=== PATIENT | male | born 1985 | race Two or more races ===

== ENCOUNTER 2016-09-29 13:05 | Emergency (ER) | payer SELFPAY ==
[2016-09-29 13:09] VITALS: BP 166/107; PULSE 109; RESP 18; TEMP 98.4; O2SAT 96
--- NOTE | 2016-09-29 13:30 | EDPHY ---
H & P Time Seen by Provider: 09/29/16 13:17 HPI/ROS: CHIEF COMPLAINT: Anxiety HISTORY OF PRESENT ILLNESS: This 31-year-old man has a history of anxiety and was prescribed Celexa and Ativan in [place] and started this approximately 2 or 2 and half months ago. He drove here with a friend who was moving to [place] and plans to fly back to [place] this week on Friday. Today he woke up and started feeling very anxious. It is usual anxiety symptoms including feeling very nervous and anxious, numbness in his hands and racing in his heart. Symptoms moderate. Not associated with syncope. REVIEW OF SYSTEMS: Eye: no change in vision ENT: no sore throat Cardiac: no chest pain or syncope Pulmonary: no cough or SOB Abdomen: no vomiting, diarrhea, abdominal pain Musculoskeletal: no back pain Skin: no rash Neuro: no headache Constitutional: no fever : no urinary symptoms A comprehensive 10 point review of systems is otherwise negative aside from elements mentioned in the history of present illness. PAST MEDICAL HISTORY: Anxiety disorder Social history: Smoker, does not drink alcohol, no family history of addiction. General Appearance: Alert and conversant, cooperative. Eyes: No scleral icterus. ENT, Mouth: Normal mucous membranes. Respiratory: Mild hyperventilation, breath sounds equal, lungs are clear to auscultation. Cardiovascular: Regular rate and rhythm. Heart rate 80 to 90 on my exam. Gastrointestinal: Abdomen is soft and non tender. Neurological: Alert and oriented x3. Normally conversant. Ambulatory. Not tremulous. Not hallucinating. Skin: Warm and dry, no rashes. Musculoskeletal: No calf tenderness. Psychiatric: Moderately anxious otherwise normal. Emergency Department course/MDM: Continue Celexa. 1 mg oral Ativan here. Follow up with primary care physician in [place]. This appears to be his typical anxiety symptoms and I do not think that this likely represents pulmonary embolism or malignant dysrhythmia or alcohol withdrawal or stroke or acute neurologic emergency. Likely numbness in hands is from hyperventilation. Smoking Status: Never smoked Constitutional: Initial Vital Signs Temperature (C) 36.9 C 09/29/16 13:05 Heart Rate 109 H 09/29/16 13:05 Respiratory Rate 18 09/29/16 13:05 Blood Pressure 166/107 H 09/29/16 13:05 O2 Sat (%) 96 09/29/16 13:05 O2 Delivery Mode Room Air Allergies/Adverse Reactions: No Known Allergies Allergy (Unverified 09/29/16 13:09) Home Medications: Medication Instructions Recorded Celexa 09/29/16 LORAZEPAM 09/29/16 MDM/Departure - MDM Medications Given: Discontinued Medications Lorazepam (Ativan) 1 mg PO EDNOW ONE Stop: 09/29/16 13:30 Last Admin: 09/29/16 13:39 Dose: 1 mg - Depart Disposition: Home, Routine, Self-Care Clinical Impression: Anxiety Condition: Good Instructions: Generalized Anxiety Disorder (ED), Anxiety (ED) Referrals: DENIS GLASGOW [Other] - As per Instructions
[2016-09-29] MEDS: LORazepam 1 MG TAB PO ONE (13:39)
== END 2016-09-29 13:39 | disposition home or self-care (01) ==
DX: F41.9 Anxiety disorder, unspecified (principal); F17.200 Nicotine dependence, unspecified, uncomplicated